=== PATIENT | male | born 1975 | race Caucasian/White ===

== ENCOUNTER 2021-10-26 00:12 | Inpatient (IN) ==
[2021-10-26] MEDS ORDERED: Naloxone 0.4 MG/ML INJ IVP PRN (03:12)
[2021-10-26] MEDS ORDERED: Melatonin 3 MG TABLET PO PRN (03:12)
[2021-10-26] MEDS ORDERED: Ondansetron 4 MG/2 ML VIAL IVP PRN ×2 (03:12→09:18)
[2021-10-26] MEDS ORDERED: 0.9 % Sodium Chloride 1,000 ML IVC SCH (03:15)
[2021-10-26 04:42] LABS: Mean Corpuscular HGB Conc 31.6 g/dL (31.6-35.5); Platelet Count 193 K/mcL (140-400)
[2021-10-26 04:43] LABS: Hematocrit 46.8 % (37.5-50.1); Hemoglobin 14.8 g/dL (12.9-16.9); Mean Corpuscular Hemoglobin 28.4 pg (28.0-33.3); Mean Corpuscular Volume 89.8 fL (83.0-100.0); Mean Platelet Volume 11.6 fL (9.4-12.4); Red Blood Count 5.21 M/mcL (4.19-5.50)
[2021-10-26 04:57] LABS: White Blood Count 44.5 K/mcL (4.3-11.1)
[2021-10-26 04:59] LABS: Alanine Aminotransferase 21 Units/L (7-52); Albumin 3.7 g/dL (3.5-5.7); Albumin/Globulin Ratio 1.3 (1.1-2.2); Alkaline Phosphatase 74 Units/L (34-104); Aspartate Amino Transferase 25 Units/L (13-39); BUN/Creatinine Ratio 15 (6-26); Bilirubin,Total 1.7 mg/dL (0.3-1.0); Blood Urea Nitrogen 17 mg/dL (6-20); Calcium 8.5 mg/dL (8.6-10.3); Carbon Dioxide 20 mEq/L (23-29); Chloride 107 mEq/L (98-107); Globulin 2.9 g/dL (2.4-3.5); Glucose 128 mg/dL (70-105); Magnesium 1.5 mg/dL (1.6-2.6); Osmolality,Calculated 287 (280-300); Phosphorous 2.3 mg/dL (2.7-4.5); Potassium 3.6 mEq/L (3.5-5.1); Sodium 137 mEq/L (136-145); Total Protein 6.6 g/dL (6.4-8.9); eGFR For African Americans > 60 (> 60); eGFR For Non-African Americans > 60 (> 60)
[2021-10-26 05:02] LABS: Platelet Estimate Normal (Normal); Smudge Cells Present (Not Present)
[2021-10-26 05:03] LABS: Lymphocytes # 2.7 K/mcL (0.6-4.6); Monocytes # 1.8 K/mcL (0.0-1.3); Neutrophils # 40.1 K/mcL (1.6-8.9)
[2021-10-26] MEDS: Piperacillin/Tazobactam 3.375 GM in 0.9 % Sodium Chloride Mini Bag 100 ML IVPB SCH ×3 (05:30→20:48)
[2021-10-26] MEDS ORDERED: Morphine Sulfate 2 MG/ML SYRINGE IVP ONE (05:35)
[2021-10-26] MEDS ORDERED: Cefepime HCl 2,000 MG in 0.9 % Sodium Chloride 10 ML IVP SCH (06:00)
[2021-10-26] MEDS ORDERED: Vancomycin 2,000 MG/520 ML IV.SOLN IVPB ONE (07:00)
[2021-10-26] MEDS ORDERED: Acetaminophen IV 1,000 MG/100 ML BAG IVPB ONE (07:14)
[2021-10-26] MEDS ORDERED: Famotidine 20 MG/2 ML VIAL IVP ONE (07:14)
[2021-10-26] MEDS ORDERED: Lidocaine -MPF 4% 5 ML AMPUL ONE (07:27)
[2021-10-26] MEDS ORDERED: *HR* Succinylcholine 200 MG/10 ML VIAL IVP ONE (07:31)
[2021-10-26] MEDS ORDERED: Lidocaine -MPF 2% 5 ML VIAL ONE (07:32)
[2021-10-26] MEDS ORDERED: *HR* FentaNYL (PF) 100 MCG/2 ML VIAL ONE (07:33)
[2021-10-26] MEDS ORDERED: *HR* Midazolam HCl 2 MG/2 ML VIAL ONE (07:33)
[2021-10-26] MEDS ORDERED: Ondansetron 4 MG/2 ML VIAL ONE (07:34)
[2021-10-26] MEDS ORDERED: Iopamidol - 300 50 ML VIAL ONE (07:36)
[2021-10-26] MEDS ORDERED: Famotidine 20 MG/2 ML VIAL ONE (07:54)
[2021-10-26] MEDS ORDERED: *HR* Vasopressin 20 UNIT/ML VIAL ONE (08:38)
[2021-10-26 13:27] LABS: Bilirubin,Urine Negative (Negative); Blood,Urine Large (Negative); Clarity,Urine Ex.Turbid (Clear); Color,Urine Light-Orange (Yellow); Glucose,Urine (UA) 50 mg/dL (Normal); Ketones,Urine 20 mg/dL (Negative); Leukocyte Esterase,Urine Small (Negative); Nitrite,Urine Negative (Negative); Protein,Urine 100 mg/dL (Neg-Trace); Specific Gravity,Urine > 1.030 (1.010-1.025); Urobilinogen,Urine Normal (Normal)
[2021-10-26 13:36] LABS: Bacteria,Urine Present per hpf (None-Few); RBC,Urine Present per hpf (0-3); Squamous Epithelial Cell,Urine Present per hpf (None-Few); WBC,Urine Present per hpf (0-3)
[2021-10-26 17:44] LABS: Hemoglobin 14.7 g/dL (12.9-16.9); Red Cell Distribution Width 14.6 % (11.5-14.5)
[2021-10-26 17:45] LABS: Mean Corpuscular Hemoglobin 28.7 pg (28.0-33.3); Mean Corpuscular Volume 89.7 fL (83.0-100.0); Mean Platelet Volume 12.5 fL (9.4-12.4); Platelet Count 164 K/mcL (140-400); Red Blood Count 5.13 M/mcL (4.19-5.50)
[2021-10-26] MEDS: Vancomycin 1,500 MG/265 ML IV.SOLN IVPB SCH (17:53)
[2021-10-26 18:25] LABS: Lymphocytes # 2.1 K/mcL (0.6-4.6); Platelet Estimate Normal (Normal)
[2021-10-26 18:51] LABS: BUN/Creatinine Ratio 13 (6-26); Blood Urea Nitrogen 18 mg/dL (6-20); Calcium 8.5 mg/dL (8.6-10.3); Carbon Dioxide 25 mEq/L (23-29); Chloride 105 mEq/L (98-107); Glucose 213 mg/dL (70-105); Osmolality,Calculated 290 (280-300); Potassium 4.9 mEq/L (3.5-5.1); Sodium 136 mEq/L (136-145); eGFR For African Americans > 60 (> 60); eGFR For Non-African Americans 55 (> 60)
[2021-10-27] MEDS ORDERED: Piperacillin/Tazobactam 3.375 GM VIAL ONE (05:33)
[2021-10-27] MEDS: Vancomycin 1,500 MG/265 ML IV.SOLN IVPB SCH (05:48)
[2021-10-27] MEDS: Piperacillin/Tazobactam 3.375 GM in 0.9 % Sodium Chloride Mini Bag 100 ML IVPB SCH ×3 (05:49→23:26)
[2021-10-27 06:59] LABS: Hemoglobin 13.7 g/dL (12.9-16.9); Mean Platelet Volume 12.2 fL (9.4-12.4)
[2021-10-27 07:01] LABS: Hematocrit 43.2 % (37.5-50.1); Mean Corpuscular HGB Conc 31.7 g/dL (31.6-35.5); Mean Corpuscular Hemoglobin 28.7 pg (28.0-33.3); Mean Corpuscular Volume 90.4 fL (83.0-100.0); Platelet Count 154 K/mcL (140-400); Red Blood Count 4.78 M/mcL (4.19-5.50); Red Cell Distribution Width 14.6 % (11.5-14.5)
[2021-10-27 07:05] LABS: White Blood Count 41.5 K/mcL (4.3-11.1)
[2021-10-27 07:23] LABS: Alanine Aminotransferase 37 Units/L (7-52); Albumin 3.6 g/dL (3.5-5.7); Albumin/Globulin Ratio 1.4 (1.1-2.2); Alkaline Phosphatase 68 Units/L (34-104); Aspartate Amino Transferase 39 Units/L (13-39); BUN/Creatinine Ratio 15 (6-26); Bilirubin,Total 1.3 mg/dL (0.3-1.0); Blood Urea Nitrogen 19 mg/dL (6-20); Calcium 8.3 mg/dL (8.6-10.3); Carbon Dioxide 28 mEq/L (23-29); Chloride 106 mEq/L (98-107); Globulin 2.6 g/dL (2.4-3.5); Glucose 172 mg/dL (70-105); Osmolality,Calculated 292 (280-300); Potassium 4.2 mEq/L (3.5-5.1); Sodium 138 mEq/L (136-145); Total Protein 6.2 g/dL (6.4-8.9); eGFR For African Americans > 60 (> 60); eGFR For Non-African Americans > 60 (> 60)
[2021-10-27 07:39] LABS: Lymphocytes # 2.9 K/mcL (0.6-4.6); Monocytes # 1.7 K/mcL (0.0-1.3); Neutrophils # 36.9 K/mcL (1.6-8.9)
[2021-10-27 07:40] LABS: Platelet Estimate Normal (Normal)
[2021-10-27] MEDS ORDERED: Potassium Phosphate 44 MEQ in 0.9 % Sodium Chloride 250 ML IVPB ONE (08:35)
[2021-10-27] MEDS: Hyoscyamine SL 0.125 MG TAB.SUBL SL SCH ×3 (09:31→21:20)
[2021-10-27 16:22] LABS: Bacteria,Urine Few per hpf (None-Few); Bilirubin,Urine Negative (Negative); Blood,Urine Large (Negative); Clarity,Urine Turbid (Clear); Color,Urine Light-Orange (Yellow); Glucose,Urine (UA) Normal (Normal); Ketones,Urine Negative (Negative); Leukocyte Esterase,Urine Large (Negative); Mucus,Urine Few per lpf (None-Few); Nitrite,Urine Negative (Negative); Protein,Urine 50 mg/dL (Neg-Trace); RBC,Urine TNTC per hpf (0-3); Specific Gravity,Urine 1.018 (1.010-1.025); Squamous Epithelial Cell,Urine Few per hpf (None-Few); Urobilinogen,Urine Normal (Normal); WBC,Urine 15-30 per hpf (0-3)
[2021-10-27] MEDS ORDERED: Hyoscyamine SL 0.125 MG TAB.SUBL SL SCH ×3 (19:26→21:15)
[2021-10-27] MEDS: Vancomycin 2,000 MG/520 ML IV.SOLN IVPB SCH (21:13)
[2021-10-28 02:18] LABS: Mean Corpuscular HGB Conc 32.3 g/dL (31.6-35.5); Mean Corpuscular Hemoglobin 28.7 pg (28.0-33.3)
[2021-10-28 02:19] LABS: Hematocrit 43.6 % (37.5-50.1); Hemoglobin 14.1 g/dL (12.9-16.9); Mean Corpuscular Volume 88.8 fL (83.0-100.0); Mean Platelet Volume 12.6 fL (9.4-12.4); Platelet Count 165 K/mcL (140-400); Red Blood Count 4.91 M/mcL (4.19-5.50); Red Cell Distribution Width 14.5 % (11.5-14.5); White Blood Count 29.5 K/mcL (4.3-11.1)
[2021-10-28 02:47] LABS: Alanine Aminotransferase 30 Units/L (7-52); Albumin 3.4 g/dL (3.5-5.7); Albumin/Globulin Ratio 1.2 (1.1-2.2); Alkaline Phosphatase 67 Units/L (34-104); Aspartate Amino Transferase 35 Units/L (13-39); BUN/Creatinine Ratio 17 (6-26); Bilirubin,Total 0.9 mg/dL (0.3-1.0); Blood Urea Nitrogen 18 mg/dL (6-20); Calcium 8.3 mg/dL (8.6-10.3); Carbon Dioxide 29 mEq/L (23-29); Chloride 105 mEq/L (98-107); Globulin 2.9 g/dL (2.4-3.5); Glucose 101 mg/dL (70-105); Magnesium 2.3 mg/dL (1.6-2.6); Osmolality,Calculated 290 (280-300); Phosphorous 2.9 mg/dL (2.7-4.5); Potassium 4.5 mEq/L (3.5-5.1); Sodium 139 mEq/L (136-145); Total Protein 6.3 g/dL (6.4-8.9); eGFR For African Americans > 60 (> 60); eGFR For Non-African Americans > 60 (> 60)
[2021-10-28 02:49] LABS: Lymphocytes # 4.7 K/mcL (0.6-4.6); Monocytes # 2.4 K/mcL (0.0-1.3); Neutrophils # 22.4 K/mcL (1.6-8.9); Platelet Estimate Normal (Normal)
[2021-10-28 02:50] LABS: Reactive Lymphocytes Present (Not Present)
[2021-10-28] MEDS: Hyoscyamine SL 0.125 MG TAB.SUBL SL SCH ×5 (03:31→23:29)
[2021-10-28] MEDS: Piperacillin/Tazobactam 3.375 GM in 0.9 % Sodium Chloride Mini Bag 100 ML IVPB SCH ×3 (05:40→21:50)
[2021-10-28] MEDS: Vancomycin 2,000 MG/520 ML IV.SOLN IVPB SCH (12:11)
[2021-10-29 03:56] LABS: Basophils # 0.1 K/mcL (0.0-0.2); Basophils % 0.8 %; Eosinophils # 0.2 K/mcL (0.0-0.6); Eosinophils % 1.3 %; Hematocrit 46.2 % (37.5-50.1); Hemoglobin 14.5 g/dL (12.9-16.9); Immature Granulocytes % 0.6 % (0-4); Lymphocytes # 5.4 K/mcL (0.6-4.6); Lymphocytes % 34.5 %; Mean Corpuscular HGB Conc 31.4 g/dL (31.6-35.5); Mean Corpuscular Hemoglobin 27.9 pg (28.0-33.3); Mean Platelet Volume 12.8 fL (9.4-12.4); Monocytes % 6.4 %; Neutrophils # 8.9 K/mcL (1.6-8.9); Platelet Count 175 K/mcL (140-400); Red Blood Count 5.19 M/mcL (4.19-5.50); Red Cell Distribution Width 14.3 % (11.5-14.5); Segmented Neutrophils % 56.4 %; White Blood Count 15.7 K/mcL (4.3-11.1)
[2021-10-29 04:17] LABS: Alanine Aminotransferase 29 Units/L (7-52); Albumin 3.5 g/dL (3.5-5.7); Albumin/Globulin Ratio 1.2 (1.1-2.2); Alkaline Phosphatase 61 Units/L (34-104); Aspartate Amino Transferase 30 Units/L (13-39); BUN/Creatinine Ratio 15 (6-26); Bilirubin,Total 1.1 mg/dL (0.3-1.0); Blood Urea Nitrogen 17 mg/dL (6-20); Calcium 8.7 mg/dL (8.6-10.3); Carbon Dioxide 29 mEq/L (23-29); Chloride 103 mEq/L (98-107); Globulin 2.9 g/dL (2.4-3.5); Glucose 75 mg/dL (70-105); Osmolality,Calculated 290 (280-300); Potassium 4.7 mEq/L (3.5-5.1); Sodium 140 mEq/L (136-145); Total Protein 6.4 g/dL (6.4-8.9); eGFR For African Americans > 60 (> 60); eGFR For Non-African Americans > 60 (> 60)
[2021-10-29 05:08] VITALS: BP 142/97; PULSE 72; TEMP 99; O2SAT 94
[2021-10-29] MEDS: Hyoscyamine SL 0.125 MG TAB.SUBL SL SCH ×2 (05:10→12:03)
[2021-10-29] MEDS: Piperacillin/Tazobactam 3.375 GM in 0.9 % Sodium Chloride Mini Bag 100 ML IVPB SCH (05:10)
== END 2021-10-29 14:34 | disposition home or self-care (01) | DRG 871 ==
LOC: 3NENU → SUATTDRO 03:12
PROVIDERS: ADMIT Internal Medicine; ATTEND Family Medicine